=== PATIENT | female | born 1990 ===

== ENCOUNTER 2017-08-31 10:34 | Emergency (ER) | payer SELFPAY ==
[2017-08-31 12:07] LABS: HCG,QUALITATIVE URINE NEGATIVE (NEGATIVE)
[2017-08-31 12:09] LABS: SQUAMOUS EPITHIAL 2 /hpf (0-5); URINE BACTERIA RARE (<OCC); URINE BILIRUBIN NEGATIVE (NEGATIVE); URINE BLOOD 1+ (NEGATIVE); URINE CLARITY Hazy (Clear); URINE COLOR Yellow (YELLOW); URINE GLUCOSE (UA) NORMAL (Normal); URINE LEUKOCYTE ESTERASE NEG Leu/uL (Negative); URINE NITRATE NEGATIVE (NEGATIVE); URINE PROTEIN NEGATIVE (NEGATIVE); URINE UROBILINOGEN NORMAL mg/dL (0.2-1.0)
--- NOTE | 2017-08-31 12:44 | C.PDOC ---
History Of Present Illness 27 year old female presents to the ED for evaluation of an erythematous rash to her vaginal and perineum region which began 5 days ago. Patient notes increased itching and burning to the site and a pimple around the area. Patient has been applying cortisone cream to the area without relief. Patient denies fever, chills, using new soaps/products, abdominal pain, vaginal discharge/bleeding. Time Seen by Provider: 08/31/17 11:22 Chief Complaint (Nursing): Abnormal Skin Integrity History Per: Patient History/Exam Limitations: no limitations Onset/Duration Of Symptoms: Days (5) Current Symptoms Are (Timing): Still Present Quality Of Symptoms: Itching Additional History Per: Patient Past Medical History Reviewed: Historical Data, Nursing Documentation, Vital Signs Vital Signs: Last Vital Signs Temp 98.2 F 08/31/17 13:06 Pulse 82 08/31/17 13:06 Resp 18 08/31/17 13:06 BP 128/72 08/31/17 13:06 Pulse Ox 98 08/31/17 14:31 - Medical History PMH: No Chronic Diseases Surgical History: No Surg Hx Family History: States: Unknown Family Hx - Social History Hx Alcohol Use: Yes Hx Substance Use: No - Immunization History Hx Tetanus Toxoid Vaccination: No Hx Influenza Vaccination: No Hx Pneumococcal Vaccination: No Review Of Systems Constitutional: Negative for: Fever, Chills Gastrointestinal: Negative for: Abdominal Pain Genitourinary: Negative for: Vaginal Discharge, Vaginal Bleeding Skin: Positive for: Rash Physical Exam - Physical Exam Appears: Non-toxic, No Acute Distress Skin: Warm, Dry, Rash (erythematous rash to bilateral labia and perineum with excoriations ), Other (Bilingual Speech Language Pathologist: Nikki Louis) Head: Atraumatic, Normacephalic Eye(s): bilateral: Normal Inspection Oral Mucosa: Moist Neck: Normal ROM, Supple Cardiovascular: Rhythm Regular Respiratory: Normal Breath Sounds Gastrointestinal/Abdominal: Bowel Sounds (active), Soft, No Tenderness, No Guarding, No Rebound Rectal: Other ((+) 0.5cm non-tender, non-thrombosed hemorrhoid) Back: Normal Inspection, No CVA Tenderness Pelvic: No Vaginal Bleeding, No Vaginal Discharge, No Adnexal Tenderness Neurological/Psych: Oriented x3, Normal Speech, Normal Cognition Gait: Steady ED Course And Treatment O2 Sat by Pulse Oximetry: 98 (on RA) Pulse Ox Interpretation: Normal Medical Decision Making Medical Decision Making: Progress: Urinalysis ordered and reviewed. Monistat cream offered but patient states she took that already without relief. Patient was instructed that the lump by the rectum is most likely a hemorrhoid but also may be a wart or skin tag which should be tested outpatient. Patient was instructed to follow up with the OBGYN. Disposition - Disposition Referrals: Penny Anthony MD [Staff Provider] - Vitaly Ibanez MD [Staff Provider] - Disposition: HOME/ ROUTINE Disposition Time: 12:41 Condition: GOOD Additional Instructions: Follow up with the medical doctor/clinic within 1-2 days, Return if worsened. Prescriptions: Clotrimazole/Betamethasone [Lotrisone] 15 gm EXT BID #2 tube Instructions: Vulvovaginal Yeast Infection Forms: [employer] ([place]ri[place]) - Clinical Impression Clinical Impression: Vulvovaginitis - PA / DUAL RATE DEALER / Resident Statement MD/DO has reviewed & agrees with the documentation as recorded. - Scribe Statement The provider has reviewed the documentation as recorded by the Scribe (Estephanie Pacheco) All medical record entries made by the Scribe were at my direction and personally dictated by me. I have reviewed the chart and agree that the record accurately reflects my personal performance of the history, physical exam, medical decision making, and the department course for this patient. I have also personally directed, reviewed, and agree with the discharge instructions and disposition.
[2017-08-31 13:08] VITALS: BP 128/72; PULSE 82; RESP 18; TEMP 98.2
[2017-08-31 13:33] VITALS: O2SAT 98
== END 2017-08-31 13:08 | disposition home or self-care (01) ==
LOC: C.ER 10:34
DX: N76.0 Acute vaginitis (principal)

== ENCOUNTER 2018-07-17 10:44 | Emergency (ER) | payer MEDICAID, OTHER ==
[2018-07-17 10:55] VITALS: BMI 25.0
[2018-07-17 10:59] VITALS: BP 119/84; PULSE 89; RESP 18; TEMP 97.8; O2SAT 96
--- NOTE | 2018-07-17 11:12 | C.PDOC ---
History Of Present Illness 28 y/o female with no significant PMH prsents to the ED c/o rectal mass with pain x 5 days. Pt states she has been constipated over the last month and having to strain during bowel movements. Starting five days ago, she felt a small ball near her anus with associated itching and discomfort when walking/sitting. She has been using OTC preparation H cream and taking fiber gummies, which has provided relief, however the mass persists, causing her to present here for evaluation. She has no history of hemorrhoids and has not followed up with her primary doctor for this complaint. Denies bleeding, bowel/bladder incontinence, urinary symptoms, back pain, abdominal pain, or any other associated symptoms. Time Seen by Provider: 07/17/18 11:00 Chief Complaint (Nursing): Medical Clearance History Per: Patient Past Medical History Reviewed: Historical Data, Nursing Documentation, Vital Signs Vital Signs: Last Vital Signs Temp 97.8 F 07/17/18 10:55 Pulse 89 07/17/18 10:55 Resp 18 07/17/18 10:55 BP 119/84 07/17/18 10:55 Pulse Ox 96 07/17/18 10:55 - Medical History PMH: No Chronic Diseases Family History: States: Unknown Family Hx - Social History Hx Alcohol Use: Yes Hx Substance Use: No - Immunization History Hx Tetanus Toxoid Vaccination: No Hx Influenza Vaccination: No Hx Pneumococcal Vaccination: No Review Of Systems Except As Marked, All Systems Reviewed And Found Negative. Constitutional: Negative for: Fever, Chills Eyes: Negative for: Vision Change Cardiovascular: Negative for: Chest Pain, Palpitations, Light Headedness Respiratory: Negative for: Cough, Shortness of Breath Gastrointestinal: Positive for: Rectal Pain, Other (hemorrhoid). Negative for: Nausea, Vomiting, Abdominal Pain Musculoskeletal: Negative for: Neck Pain, Back Pain Skin: Negative for: Rash Neurological: Negative for: Weakness, Numbness, Headache, Dizziness Physical Exam - Physical Exam Appears: Well, Non-toxic, No Acute Distress Skin: Normal Color, Warm, Dry Head: Atraumatic, Normacephalic, No Tenderness Eye(s): bilateral: Normal Inspection, PERRL, EOMI Nose: Normal Throat: Normal Neck: Normal, Normal ROM, Supple Cardiovascular: Rhythm Regular Respiratory: Normal Breath Sounds Gastrointestinal/Abdominal: Normal Exam, Bowel Sounds (normoactive), Soft, No Tenderness Rectal: Rectal Tone (normal), Hemorrhoids (small thrombosed external hemorrhoid at 12 o'clock ), Tenderness (over hemorrhoid) Back: Normal Inspection, No CVA Tenderness, No Paraspinal Tenderness Extremity: Normal ROM, No Tenderness, Capillary Refill (<2s) Extremity: Bilateral: Atraumatic, No Pedal Edema, Normal Color And Temperature, Normal ROM Pulses: Left Radial: Normal, Right Radial: Normal Neurological/Psych: Oriented x3, Normal Speech, Normal Cognition, Normal Motor, Normal Sensation Gait: Steady ED Course And Treatment O2 Sat by Pulse Oximetry: 96 Medical Decision Making Medical Decision Making: Advised to followup with PMD and use prescribed cream as directed with sitz baths daily. Diagnostic testing results and plan of care discussed with patient. Strict instructions given regarding prescription use, importance of followup, and signs/symptoms to return to ER including difficulty moving bowels, fever, chills, worsening pain, or any other new/worsening symptoms. Pt verbalized understanding of discussion. Patient is A&Ox3, ambluating with steady gait, with vital signs stable for discharge. Disposition - Disposition Referrals: [facility] [Outside] Disposition: HOME/ ROUTINE Disposition Time: 11:30 Condition: GOOD Additional Instructions: Use hemorrhoid cream as directed daily Take stool softeners daily as needed Increase fluids and fiber Sitz baths daily Followup with primary doctor in 1-2 days Return to ER with any new/worsening symptoms Prescriptions: Bisacodyl [Dulcolax] 5 mg PO DAILY PRN #14 tablet. PRN Reason: Constipation Hydrocortisone/Lidocaine/Aloe [Leah-Frank 2-2% Kit] 1 each RC DAILY PRN #2 kit PRN Reason: Pain, Moderate (4-7) Instructions: Hemorrhoids, How to Do a Sitz Bath Forms: General Discharge Instructions, [facility] (Portuguese), Work Excuse - Clinical Impression Clinical Impression: Hemorrhoid
== END 2018-07-17 11:38 | disposition home or self-care (01) ==
LOC: C.ER 10:44
DX: K64.5 Perianal venous thrombosis (principal)